=== PATIENT | male | born 1970 | race Caucasian/White ===

== ENCOUNTER 2016-11-10 21:30 | Emergency (ER) | payer OTHER ==
[~2016-11-10] VITALS: Ht 177.8 cm; Wt 68.0 kg
[~2016-11-10 21:30] MED LIST: AMITRIPTYLINE25 MG ORAL; ATIVAN1 MG ORAL; BENZTROPINE MESY1 MG PO; DIAZEPAM10 MG ORAL; DILANTIN100 MG ORAL; DILANTIN30 MG ORAL; DILAUDID2 MG ORAL; ESCITALOPRAM OX10 MG ORAL; KLONOPIN0.5 MG ORAL; LIBRIUM25 MG ORAL; MIRTAZAPINE15 M3 ORAL; PHENOBARBITAL30 MG ORAL; PHENOBARBITAL60 MG ORAL; PHENYTOIN SODI100 MG ORAL; QUETIAPINE FUMA25 MG ORAL; SEROQUEL100 MG ORAL
[2016-11-10 21:45] VITALS: BP 122/68
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
[2016-11-10] MEDS ORDERED: DILANTIN100 MG ORAL (21:57)
[2016-11-10] MEDS ORDERED: PHENOBARBITAL60 MG ORAL (21:57)
[2016-11-10 23:06] VITALS: BP 122/68
== END 2016-11-10 23:06 | disposition home or self-care (01) ==
LOC: EDBD 21:30 → EMR 21:44
DX: F10.129 Alcohol abuse with intoxication, unspecified (principal); Z76.0 Encounter for issue of repeat prescription; G40.909 Epilepsy, unspecified, not intractable, without status epilepticus; E11.9 Type 2 diabetes mellitus without complications; Z91.19 Patient's noncompliance with other medical treatment and regimen
CPT/HCPCS: 99284